=== PATIENT | female | born 1950 | race Two or more races ===

== ENCOUNTER 2020-11-24 13:15 | Inpatient (IN) | payer OTHER ==
[~2020-11-24] VITALS: Ht 152.4 cm; Wt 49.9 kg
[2020-11-24] MEDS ORDERED: HYDROCHLOROTHIA25 MG PO (15:41)
[2020-11-24] MEDS ORDERED: OMEPRAZ PO (15:42)
[2020-11-24] MEDS ORDERED: SIMVAST PO (15:42)
[2020-11-24] MEDS ORDERED: AMLODIPI PO (15:43)
[2020-11-24] MEDS ORDERED: CLONAZEPAM1 MG PO (15:43)
[2020-11-28] MEDS ORDERED: NORVASC2.5 MG (08:52)
[2020-11-28] MEDS ORDERED: CILOSTAZOL100 MG (08:52)
[2020-11-28] MEDS ORDERED: IBANDRONATE SO150 MG (08:52)
[2020-11-28] MEDS ORDERED: SIMVASTATIN40 MG (08:52)
[2020-11-28] MEDS ORDERED: OMEPRAZOLE40 MG (08:52)
[2020-11-28] MEDS ORDERED: LOSARTAN POTAS100 MG (08:52)
[2020-12-08] MEDS ORDERED: HYOSCYAMINE0.125 M1 SL (09:49)
[2020-12-08] MEDS ORDERED: ULTRACET PO (09:50)
[2020-12-08] MEDS ORDERED: INTESTINEX680 M1 PO (09:50)
[2020-12-08] MEDS ORDERED: PANTOPRAZOLE SO40 MG PO (09:52)
== END 2020-12-08 19:09 | disposition home or self-care (01) | DRG 327 ==
LOC: O/R 11-28 07:14 → SURG 11-28 07:14 → SURH 11-28 12:15 → SURG 11-28 20:33
PROVIDERS: ADMIT Surgery; ATTEND Surgery
PROC: 0DTF0ZZ Resection of Right Large Intestine, Open Approach (ICD-10-PCS; 2020-11-28)
PROC: 0DBB0ZZ Excision of Ileum, Open Approach (ICD-10-PCS; 2020-11-28)
PROC: 0DJD4ZZ Inspection of Lower Intestinal Tract, Percutaneous Endoscopic Approach (ICD-10-PCS; 2020-11-28)
PROC: 07BC0ZX Excision of Pelvis Lymphatic, Open Approach, Diagnostic (ICD-10-PCS; 2020-11-28)
PROC: 0DB60ZZ Excision of Stomach, Open Approach (ICD-10-PCS; principal; 2020-11-28 12:15)
PROC: 3E0F7SF Introduction of Other Gas into Respiratory Tract, Via Natural or Artificial Opening (ICD-10-PCS; 2020-11-29)
PROC: 02HV33Z Insertion of Infusion Device into Superior Vena Cava, Percutaneous Approach (ICD-10-PCS; 2020-12-03)
PROC: 30233N1 Transfusion of Nonautologous Red Blood Cells into Peripheral Vein, Percutaneous Approach (ICD-10-PCS; 2020-12-06)
DX: C18.4 Malignant neoplasm of transverse colon (principal); E87.0 Hyperosmolality and hypernatremia; C78.89 Secondary malignant neoplasm of other digestive organs; R59.0 Localized enlarged lymph nodes; K63.89 Other specified diseases of intestine; Z53.31 Laparoscopic surgical procedure converted to open procedure; J44.9 Chronic obstructive pulmonary disease, unspecified; I10 Essential (primary) hypertension; D64.9 Anemia, unspecified

== ENCOUNTER 2020-11-24 14:37 | Outpatient (CLI) | payer OTHER ==
[2020-11-24] MEDS ORDERED: HYDROCHLOROTHIA25 MG PO (15:41)
[2020-11-24] MEDS ORDERED: OMEPRAZ PO (15:42)
[2020-11-24] MEDS ORDERED: SIMVAST PO (15:42)
[2020-11-24] MEDS ORDERED: AMLODIPI PO (15:43)
[2020-11-24] MEDS ORDERED: CLONAZEPAM1 MG PO (15:43)
== END 2020-11-24 14:40 | disposition home or self-care (01) ==
LOC: LAB 14:37
PROVIDERS: ATTEND Surgery
DX: D64.89 Other specified anemias (principal); R59.0 Localized enlarged lymph nodes; R93.5 Abnormal findings on diagnostic imaging of other abdominal regions, including retroperitoneum; C18.5 Malignant neoplasm of splenic flexure

== ENCOUNTER 2020-11-25 10:37 | Outpatient (CLI) | payer OTHER ==
[~2020-11-25 10:37] MED LIST: AMLODIPI PO; CLONAZEPAM1 MG PO; HYDROCHLOROTHIA25 MG PO; OMEPRAZ PO; SIMVAST PO
== END 2020-11-25 10:50 | disposition home or self-care (01) ==
LOC: RAD 10:37 → TOM 10:37 → RAD 10:50
PROVIDERS: ATTEND Surgery
DX: C18.5 Malignant neoplasm of splenic flexure (principal); R93.5 Abnormal findings on diagnostic imaging of other abdominal regions, including retroperitoneum; R59.0 Localized enlarged lymph nodes